=== PATIENT | female | born 1940 | race Caucasian/White ===

== ENCOUNTER 2017-01-17 20:45 | Inpatient (IN) | payer MEDICARE, BC ==
[~2017-01-17] VITALS: Ht 162.6 cm; Wt 55.3 kg
--- NOTE | ~2017-01-17 | ER ---
PATIENT'S NAME: CALEB RILEY [facility] AGE: 76 Y [address] ROOM: [place] [address] [place] [facility] [place]: 01/17/[place] ER/Outpatient Report DISCHARGE DATE: FAMILY PHYSICIAN: Joshua Brooks MD ATTENDING PHYSICIAN: Joshua Brooks Admission date and time documented in the medical record. I saw the patient at 2105 hours. CHIEF COMPLAINT: Choking, epigastric pain. HISTORY OF PRESENT ILLNESS: This patient is a 76-year-old female, who around 1930 hours developed a choking sensation and pain in her epigastric area, lower substernal area. She tried to drink some water, and it came right back up. She vomited about 3 to 4 times. Unable to keep anything down. She thought she may have had some type of obstruction of food bolus. She has not really ate anything except for some yogurt tonight, however. Brought to the emergency room for evaluation. She has been feeling a little bit better when she got here. She said that she vomited up a lot of phlegm with what she called "bubbly phlegm." No solid food particles were vomited up. She is a little bit short of breath because of the discomfort. She does have chronic diarrhea over the past year. No urinary symptomatology. No recent fever, chills, sweats, coughs, colds, or flus. No headache, eyes, ears, nose, throat, neck, or spine pain. No lightheadedness, dizziness, syncope, or near syncope. No fall or trauma. No joint or muscle swelling, redness, or pain. No skin eruptions or rash. The patient does have a history of Parkinson disease, but no other neuro changes. She has bipolar affective disorder. No psychosis. She does have hypothyroidism, no other endocrine problems. HOME MEDICATIONS: See attached medication list. ALLERGIES: NONE. SOCIAL HISTORY: Nonsmoker, nondrinker. SIGNIFICANT PAST MEDICAL HISTORY: Parkinson disease, dyslipidemia, hypothyroidism, hypertension, bipolar affective disorder, small bowel obstruction with mesenteric volvulus, urinary tract infection, irritable bowel syndrome, sepsis, uterine cancer, remote tobacco abuse. [facility] 76 Y [address] ROOM: [address] [address] [place] [facility] [place]: 01/17/2017 ER/Outpatient Report DISCHARGE DATE: FAMILY PHYSICIAN: Joshua Brooks MD ATTENDING PHYSICIAN: Joshua Broosk OPERATIONS: Hysterectomy, exploratory laparotomy with takedown of adhesions, appendectomy, cholecystectomy, central line placement. REVIEW OF SYSTEMS: All systems reviewed by me are negative with the exception of those discussed in the history of present illness. PHYSICAL EXAMINATION: VITAL SIGNS: Temperature 98.2 tympanic, pulse 80, respirations 18, blood pressure 116/80, O2 saturation on room air is 92%. HEAD: Normocephalic. No abrasion, contusion, laceration, swelling of the scalp or face. EYES: Extraocular muscles intact. PERRL. EARS: Clear TMs bilaterally. NOSE AND THROAT: Clear. Mucous membranes moist. NECK: No nuchal rigidity. No thyromegaly or cervical adenopathy. No tenderness. SPINE: Negative. LUNGS: Clear. Good air flow. No rales, rhonchi, or wheezes. HEART: Regular. Pulses are palpable. No chest wall or ribcage pain to palpation. ABDOMEN: Soft. Some mild tenderness in the epigastric region. No true guarding or rigidity. No rebound tenderness. Bowel tones present. No organomegaly or abnormal mass palpable. No CVA tenderness. EXTREMITIES: Intact. NEUROVASCULAR: Intact. SKIN: Clear. No skin eruptions or rash. LABORATORY DATA AND X-RAYS: CMS was normal except for an elevated glucose 111, elevated creatinine 1.2 high, normal BUN of 24, low GFR 44. Amylase was elevated at 121, lipase was elevated at 2204. CPK was 99, taozf-ga-fyly cardiac enzymes were normal. CRP was 0.6. White count 7400, 52 segs, 35 lymphs, 9 monos, 3 eos, 1 baso, hemoglobin is 12.5, hematocrit 38.8, platelet count is 283,000. Pro-time is 10.5 with an INR of 1.0. EKG showed left bundle-branch block. Three abdominal x-rays show no perforation, obstruction, or acute lung infiltrate. No evidence of a hiatal hernia on the plain film. We will review a plain film with the radiologist. EMERGENCY DEPARTMENT COURSE: I did start the patient on IV normal saline fluids. I did give her glucagon, and after the glucagon, she seemed to be markedly improved with a full feeling in her epigastric substernal area. She was able to take some fluids. PATIENT'S NAME: CALEB RILEY [facility] AGE: 76 Y [address] ROOM: [place] [address] [place] [facility] [place]: 01/17/2017 ER/Outpatient Report DISCHARGE DATE: FAMILY PHYSICIAN: Joshua Brooks MD ATTENDING PHYSICIAN: Joshua Brooks IMPRESSION: 1. Acute pancreatitis with elevation of lipase at 2204. No past history of pancreatitis. She is not an alcoholic. She has had her gallbladder out. She has had no recurrent common duct stones. Does have a history of dyslipidemia, so we will need to check her lipid panel and profile. 2. Hypertension. 3. Bipolar affective disorder. 4. Parkinson disease. 5. Dyslipidemia. 6. Past history of uterine cancer, status post hysterectomy. 7. Past history of small bowel obstruction with mesenteric volvulus with operative procedure and resection of bowel. 8. Remote tobacco abuse. 9. History of irritable bowel syndrome. 10. Past history of sepsis. PLAN: I did start the patient on IV normal saline fluids. I have not had to give her anything for pain as yet. Discussed the patient with Dr. Radha Horton. We will admit the patient to the hospital. The patient will need to have a CT scan of the abdomen and pelvis to evaluate her pancreas. Discussion ensued with the patient concerning my findings and recommendations, she understands. KEIKO JIMENEZ MD SDS/modl /[id number] d: 01/18/17 0305 t: 01/24/17 0613, OUTPATIENT REPORT
--- NOTE | ~2017-01-17 | DS ---
PATIENT'S NAME: CALEB RILEY [facility] AGE: 76 Y [address] ROOM: [address] [place] [address] LOCATION: [facility] [place] ADMIT DATE: 01/19/2017 Discharge Summary DISCHARGE DATE: 01/23/2017 FAMILY PHYSICIAN: Joshua Brooks MD ATTENDING PHYSICIAN: Joshua Brooks DISCHARGE DIAGNOSIS: Acute pancreatitis of uncertain etiology, improved. SECONDARY DIAGNOSES: 1. Esophagitis, found on esophagogastroduodenoscopy. 2. Prinzmetal's angina, stable. 3. Hypertension, stable. 4. Hyperlipidemia, stable. 5. Parkinson's disease, stable. 6. Bipolar affective disorder. 7. History of irritable bowel syndrome. FOLLOWUP: Follow up is Dr. Garica in 1 week. He will plan on setting up an outpatient endoscopic ultrasound and repeat EGD. She is to see Dr. Brooks in 2 weeks. DISCHARGE MEDICATIONS: Include: 1. Welchol 625 p.o. 3 times a day. 2. Align 4 mg daily. 3. Calcium carbonate 1200 mg daily. 4. FiberCon 625 mg 2 of them daily. 5. Vitamin D3 1000 units daily. 6. Klonopin 0.5 mg 1-1/2 tablets at h.s. 7. Lamictal 200 mg every night at bedtime. 8. Levothyroxine 100 mcg daily. 9. Quinapril 10 mg daily. 10. Imodium 2 mg 1 tab every other day and 1 tab with each loose stool. 11. Toprol-XL 50 mg 1-1/2 tabs daily. 12. Zyprexa 10 mg daily at bedtime and 2.5 mg also at bedtime. 13. Pravastatin 20 mg daily. 14. Sinemet 25/100 2 tabs p.o. t.i.d. 15. Bentyl 10 mg t.i.d. 16. Pantoprazole 40 mg b.i.d. #60 with one refill. HISTORY OF PRESENT ILLNESS: The patient was admitted on 01/17/2017 with complaints of acute onset of abdominal pain like something got stuck. She had eaten some yogurt. She states it did not seem to want to go up or down. She kept having mucus and kept spitting that out. She did have some emesis in the emergency room actually that was prior to arrival in the ER. They did give her some glucagon that seemed to help her symptoms. Her initial labs were all PATIENT'S NAME: CALEB RILEY [facility] AGE: 76 Y [address] ROOM: [address] [address] LOCATION: [facility] [place] ADMIT DATE: 01/19/2017 Discharge Summary DISCHARGE DATE: 01/23/2017 FAMILY PHYSICIAN: Joshua Brooks MD ATTENDING PHYSICIAN: Joshua Brooks normal other than elevated lipase. The patient did have a history of previous bowel obstructions. HOSPITAL COURSE: The patient was admitted to the hospital, made initially n.p.o., her meds were ordered, and she could just have sips of water with that. Her labs were followed throughout. Her enzyme test, pancreas, and lipase did improve significantly. Her gallbladder is surgically absent. We obtained a GI consultation. She was seen by GI and they ordered a clear liquid diet. An MRCP and EGD were then setup. She was started on pantoprazole afterwards. On the , she was doing markedly better, and we went ahead and got things ready for her to go home. We were initially planning on sending her home after lunch, she did have some problems with some choking type episode; so, we kept her until the following day. Everything was going well the rest of that day and the morning that we sent her home; so, we went ahead and dismissed her to home. We did have her hold her antidiarrheal medicines until she had a BM as she has not had a BM in the last few days. She had a swallowing study that was all okay. She will follow up with GI as mentioned above. MD EDGAR JOSEPH/abdi /[id number] d: 03/06/17 0104 t: 03/10/17 1519, DISCHARGE SUMMARY
--- NOTE | ~2017-01-17 | CON ---
PATIENT'S NAME: JEWELS RILEY [facility] AGE: 76 Y [address] ROOM: [address] [place], [place] [address] LOCATION: [facility] – [place] ADMIT DATE: 01/17/2017 Consultation DISCHARGE DATE: FAMILY PHYSICIAN: Joshua Brooks MD ATTENDING PHYSICIAN: Joshua Brooks REFERRING PHYSICIAN: MARIANNE FISHER MD REASON FOR CONSULT: Pancreatitis. HISTORY OF PRESENT ILLNESS: Jewels Riley is a very pleasant, 76-year-old female, who was admitted with history of substernal chest discomfort, inability to swallow, which she thought initially to be secondary to possible food impaction; however, further evaluation in the emergency room revealed elevated amylase and lipase values at 121 and lipase of 2204. Since after admission, she has been feeling better and both amylase and lipase values have decreased. Her CBC was normal with a hemoglobin of 12.5, hematocrit 38.8, and liver function tests were normal with total bilirubin of 0.3, alkaline phosphatase 72, ALT 10, AST 20. The patient is pain free at present and wonders what caused this attack. She has not had any previous episodes of pancreatitis; however, mainly complains of having chronic diarrhea of at least 1 year duration. She had apparently undergone colonoscopy recently at another clinic whereby a large polyp was found. She was referred to surgeon, who then referred her to [place] for removal of the polyp. Apparently, this was done by Dr. Hancock in [place]. I do not have the official report of her colonoscopy, and I do not know if colon biopsies were undertaken to rule out microscopic colitis. She states nothing was found and she has episodes of chronic constipation that she would not go for few days and then she will have loose bowels for few days. She also has component of incontinence. A CT scan of the abdomen was done here, which revealed mildly dilated intrahepatic and common bile duct without any intraductal filling defects and a surgically absent gallbladder. The pancreas was reported as normal. PAST MEDICAL HISTORY: 1. Hypothyroidism. 2. Hyperlipidemia. 3. "IBS.". 4. Parkinson's. 5. Bipolar disorder. 6. Carcinoma of the uterus. PAST SURGICAL HISTORY: Exploratory laparotomy with lysis of adhesions in October of 2015, remote cholecystectomy, hysterectomy, and appendectomy. PATIENT'S NAME: JEWELS RILEY [facility] AGE: 76 Y [address] ROOM: [facility] [place] [place], [place] [address] LOCATION: [facility] [place] [place] ADMIT DATE: 01/17/2017 Consultation DISCHARGE DATE: FAMILY PHYSICIAN: Joshua Brooks MD ATTENDING PHYSICIAN: Joshua Brooks MEDICATIONS: As reviewed in [facility] and nothing significant in relation to pancreatitis. She denies any ingestion of antibiotics prior to this episode. ALLERGIES: NONE KNOWN. SOCIAL HISTORY: Negative for alcohol abuse. There is a positive history of smoking remotely. REVIEW OF SYSTEMS: The 10-point review of systems otherwise negative. PHYSICAL EXAMINATION: GENERAL: An elderly pleasant female, in no distress. She is afebrile. VITAL SIGNS: Her vital signs as recorded are stable. HEENT: Nonicteric sclerae. Pupils round and reactive. NECK: Supple without palpable nodes. CHEST: Clear to auscultation. HEART: S1, S2 normal. ABDOMEN: Soft and nondistended. There is no palpable tenderness or masses. EXTREMITIES: No edema. NEUROLOGIC: Awake, alert, and appropriate, without any focal deficits. IMPRESSION: History and findings are suggestive of acute pancreatitis. Etiology unclear, still likely to be biliary etiology in view of intrahepatic ducts and the liver function tests can be normal in this state. Other considerations will include the possibility of underlying chronic pancreatitis in association with chronic diarrhea; however, the possibility of microscopic colitis needs to be considered. Less likely etiology secondary to hyperlipidemia is autoimmune pancreatitis. At this point, the patient is completely pain free. We will place her on clear liquids and obtain MRCP. If MRCP is negative, strong consideration should be given to performing endoscopic ultrasound to not only look at the bile ducts but also to look at the pancreas so as to rule out any underlying chronic pancreatitis. Further recommendations pending these studies. Thank you for this consult. PATIENT'S NAME: JEWELS RILEY [facility] AGE: 76 Y [address] ROOM: [address] [address] LOCATION: [facility] – [place] [place] ADMIT DATE: 01/17/2017 Consultation DISCHARGE DATE: FAMILY PHYSICIAN: Joshua Brooks MD ATTENDING PHYSICIAN: Joshua Brooks MD AM/antonil /[id number] d: 01/18/17 2258 t: 02/08/17 0735, CONSULTATION REPORT
--- NOTE | ~2017-01-17 | HP ---
PATIENT'S NAME: CALEB RILEY [facility] AGE: 76 Y [address] ROOM: [place] [address] [place] [facility] [place]: 01/17/2017 History & Physical DISCHARGE DATE: FAMILY PHYSICIAN: Joshua Brooks MD ATTENDING PHYSICIAN: Joshua Brooks DATE OF SERVICE: CHIEF COMPLAINT: Pancreatitis. HISTORY OF PRESENT ILLNESS: The patient is a 76-year-old female, who presented to the emergency room tonight after having an acute onset of bolus of yogurt, feeling like it got stuck in her abdomen. States that she had felt like it would go up or down. Had some mucus that she was spitting out, but did end up having some emesis prior to arrival here in the emergency room. They did give glucagon here, which did seem to help alleviate some of her symptoms as well. Initially, labs and exam all looked unremarkable, but then it was noted that her lipase was elevated. She has had 2 previous small bowel obstructions that resolved without surgery, her last one being in October of 2015. Denies any fever, chills, or any acute symptoms. States that she does have chronic diarrhea that she has had for over a year. PAST MEDICAL HISTORY: Significant for bipolar disorder, hypothyroidism, hyperlipidemia, Parkinson disease, IBS with diarrhea, history of uterine cancer, and small bowel obstruction in the summer of 2014 as well as October of 2015. PAST SURGICAL HISTORY: Includes, 1. Complete hysterectomy secondary to uterine cancer. 2. Cholecystectomy. REVIEW OF SYSTEMS: As per HPI. FAMILY HISTORY: Noncontributory. ALLERGIES: NONE. CURRENT MEDICATIONS: Include, PATIENT'S NAME: CALEB RILEY [facility] AGE: 76 Y [address] ROOM: [place] [address] [place] [facility] [place]: 01/17/2017 History & Physical DISCHARGE DATE: FAMILY PHYSICIAN: Joshua Brooks MD ATTENDING PHYSICIAN: Joshua Brooks 1. FiberCon 625 mg 2 tablets daily. 2. Loperamide 2 mg 1 tablet every other day. 3. Calcium 600 mg 2 tablets daily. 4. Vitamin D3 1000 units daily. 5. Levothyroxine 100 mcg daily. 6. Sinemet 25/100, 2 tablets t.i.d. 7. Welchol 625 mg 1 p.o. t.i.d. 8. Metoprolol XR 50 mg 1/2 tablet daily. 9. Pravastatin 20 mg daily. 10. Quinapril 10 mg daily. 11. Bentyl 10 mg t.i.d. 12. Align Probiotic 1 tablet daily. 13. Olanzapine 2.5 mg at bedtime as well as 10 mg at bedtime. 14. Lamotrigine 200 mg at bedtime. 15. Clonazepam 0.5 mg 3 tablets at bedtime. ALLERGIES: NO ALLERGIES. PHYSICAL EXAMINATION: VITAL SIGNS: Height 5 feet 4 inches, weight 55.1 kg. Blood pressure 116/80, pulse of 80, respirations 18, temperature 98.2, and O2 saturation 92%. GENERAL: This is an alert pleasant female, in no acute distress. HEENT: Mouth had moist mucous membranes. Eyes: Pupils were reactive. Conjunctivae were clear. Moist mucous membranes. NECK: Supple with no lymphadenopathy. HEART: Regular. LUNGS: Clear with no wheezes, crackles, or rhonchi heard. ABDOMEN: Positive bowel sounds. Soft. It was really not terribly tender on exam. No rebound, guarding, or peritoneal signs. : Exam was not done. EXTREMITIES: Showed no clubbing, cyanosis, or edema. LABORATORY DATA: CMS: Glucose of 111, creatinine of 1.2, GFR low at 44. Liver tests normal. Amylase 121, lipase 2204. CPK 99, rest of cardiac enzymes were negative. EKG showed a left bundle-branch block. I do not have another one for comparison at this time. INR 1.0. CBC: White count of 7400, hemoglobin 12.5. ASSESSMENT: Probable pancreatitis. PLAN: Currently, there is a long wait for CT scan secondary to trauma, so we will admit the patient. We will keep n.p.o. We will allow her to take her PATIENT'S NAME: CALEB RILEY [facility] AGE: 76 Y [address] ROOM: [place] [address] [place] [facility] [place]: 01/17/2017 History & Physical DISCHARGE DATE: FAMILY PHYSICIAN: Joshua Brooks MD ATTENDING PHYSICIAN: Joshua Brooks nighttime medications with sips of water. Discussed being n.p.o. after this. She is really not complaining of pain at this time, so we will not administer any pain medication currently. We will get CT scan abdomen pelvis as soon as available. We will recheck amylase and lipase levels in the morning. Dr. Brooks to take over care. MD ROSALINA FRANKS/abdi /[id number] D: [id number] T: [id number] HISTORY & PHYSICAL
[~2017-01-17 20:45] MED LIST changes: -ACCUPRIL10 MG PO; -ALIGN4 MG PO; -BENTYL10 MG PO; -CALCIUM CARBON600 MG PO; -CARAFATE1 GM PO; -FIBERCON625 MG PO; -IMODIUM2 MG PO; -NITROSTAT0.4 MG SL; -PANTOPRAZOLE SO40 MG PO; -VITAMIN D1000 UNIT PO; -ZYPREXA2.5 M1 PO
[2017-01-17 21:37] LABS: BASOPHIL # 0.1 K/uL (0.0-0.2); BASOPHIL % 0.8 %; EOSINOPHIL # 0.2 K/uL (0.0-0.5); EOSINOPHIL % 3.3 %; HEMATOCRIT 38.8 % (33.0-46.0); HEMOGLOBIN 12.5 g/dL (10.0-15.0); IMMATURE GRANULOCYTE % 0.3 %; LYMPHOCYTE # 2.6 K/uL (0.8-4.0); LYMPHOCYTE % 34.8 %; MCH 30.6 pg (27.0-34.0); MCHC 32.2 gm/dL (32.0-36.5); MCV 94.9 fl (83.0-98.0); MONOCYTE # 0.6 K/uL (0.0-1.0); MONOCYTE % 8.5 %; MPV 8.7 fl (9.4-12.4); NEUTROPHIL # (ANC) 3.9 K/uL (1.8-7.8); NEUTROPHIL % 52.3 %; NRBC % 0 /100WBC (0-0.00); PLATELET COUNT 283 K/uL (150-450); RBC 4.09 M/uL (3.50-5.50); RDW-CV 12.3 % (11.9-14.6); WBC 7.4 K/uL (4.0-11.0)
[2017-01-17 21:43] LABS: PROTIME 10.5 SECONDS (9.6-11.1)
[2017-01-17 21:53] LABS: ALBUMIN 3.4 gm/dL (3.5-5.0); ALK PHOS 72 IU/L (33-138); AST 20 IU/L (10-40); BLOOD UREA NITROGEN 24 mg/dL (6-24); CALCIUM 8.9 mg/dL (8.5-10.5); CHLORIDE 106 mMol/L (96-110); CO2 29 mMol/L (22-32); CPK 99 IU/L (21-215); CREATININE 1.2 mg/dL (0.5-1.1); ESTIMATED GFR (MDRD EQUATION) 44; SODIUM 141 mMol/L (135-145); TOTAL BILIRUBIN 0.3 mg/dL (0.0-1.5)
[2017-01-17 22:00] LABS: ALT < 10 IU/L (12-78)
[2017-01-17] MEDS ORDERED: FIBERCON625 MG PO (23:56)
[2017-01-17] MEDS ORDERED: IMODIUM2 MG PO (23:57)
[2017-01-17] MEDS ORDERED: CALCIUM CARBON600 MG PO (23:58)
[2017-01-17] MEDS ORDERED: VITAMIN D1000 UNIT PO (23:58)
[2017-01-18] MEDS ORDERED: ACCUPRIL10 MG PO (00:03)
[2017-01-18] MEDS ORDERED: BENTYL10 MG PO (00:04)
[2017-01-18] MEDS ORDERED: ALIGN4 MG PO (00:05)
[2017-01-18] MEDS ORDERED: ZYPREXA2.5 M1 PO (00:06)
[2017-01-18] MEDS ORDERED: IMODIUM2 MG PO (00:12)
[2017-01-18 05:46] LABS: ALBUMIN 3.3 gm/dL (3.5-5.0); ALK PHOS 63 IU/L (33-138); ANION GAP 11.8 (10.0-19.0); AST 18 IU/L (10-40); BLOOD UREA NITROGEN 19 mg/dL (6-24); CALCIUM 8.7 mg/dL (8.5-10.5); CHLORIDE 107 mMol/L (96-110); CO2 30 mMol/L (22-32); CREATININE 1.1 mg/dL (0.5-1.1); ESTIMATED GFR (MDRD EQUATION) 48; POTASSIUM 3.8 mMol/L (3.7-5.1); SODIUM 145 mMol/L (135-145); TOTAL PROTEIN 6.7 g/dL (6.0-8.4)
[2017-01-18 05:48] LABS: ALT < 10 IU/L (12-78); TOTAL BILIRUBIN 0.5 mg/dL (0.0-1.5)
[2017-01-19 05:50] LABS: BASOPHIL % 0.6 %; EOSINOPHIL # 0.2 K/uL (0.0-0.5); EOSINOPHIL % 3.2 %; HEMATOCRIT 42.2 % (33.0-46.0); HEMOGLOBIN 13.2 g/dL (10.0-15.0); IMMATURE GRANULOCYTE % 0.2 %; LYMPHOCYTE # 2.4 K/uL (0.8-4.0); LYMPHOCYTE % 36.1 %; MCH 30.3 pg (27.0-34.0); MCHC 31.3 gm/dL (32.0-36.5); MONOCYTE # 0.8 K/uL (0.0-1.0); MONOCYTE % 11.6 %; MPV 9.3 fl (9.4-12.4); NEUTROPHIL # (ANC) 3.2 K/uL (1.8-7.8); NEUTROPHIL % 48.3 %; NRBC % 0 /100WBC (0-0.00); PLATELET COUNT 268 K/uL (150-450); RBC 4.35 M/uL (3.50-5.50); RDW-CV 12.8 % (11.9-14.6); WBC 6.7 K/uL (4.0-11.0)
[2017-01-19 06:15] LABS: ALBUMIN 3.2 gm/dL (3.5-5.0); ALK PHOS 58 IU/L (33-138); ANION GAP 9.9 (10.0-19.0); AST 19 IU/L (10-40); BLOOD UREA NITROGEN 13 mg/dL (6-24); CALCIUM 8.8 mg/dL (8.5-10.5); CHLORIDE 108 mMol/L (96-110); CO2 30 mMol/L (22-32); CREATININE 1.1 mg/dL (0.5-1.1); ESTIMATED GFR (MDRD EQUATION) 48; POTASSIUM 3.9 mMol/L (3.7-5.1); SODIUM 144 mMol/L (135-145); TOTAL BILIRUBIN 0.5 mg/dL (0.0-1.5); TOTAL PROTEIN 6.5 g/dL (6.0-8.4)
[2017-01-19 06:16] LABS: ALT < 10 IU/L (12-78)
[2017-01-20 05:35] LABS: ANION GAP 11.7 (10.0-19.0); CALCIUM 8.4 mg/dL (8.5-10.5); POTASSIUM 3.7 mMol/L (3.7-5.1); TOTAL BILIRUBIN 0.5 mg/dL (0.0-1.5)
[2017-01-22] MEDS ORDERED: CARAFATE1 GM PO (10:10)
[2017-01-22] MEDS ORDERED: PANTOPRAZOLE SO40 MG PO (10:12)
[2017-02-01] MEDS ORDERED: NITROSTAT0.4 MG SL (11:19)
== END 2017-01-23 14:50 | disposition disaster alternative care site (69) | DRG 440 ==
LOC: GMED 20:45 → GMSU 23:17
PROVIDERS: Emergency Medicine; Obstetrics & Gynecology Obstetrics; ADMIT Family Medicine
PROC: 0DC38ZZ Extirpation of Matter from Lower Esophagus, Via Natural or Artificial Opening Endoscopic (ICD-10-PCS; principal; 2017-01-19)
DX: K85.90 Acute pancreatitis without necrosis or infection, unspecified (principal); G20 Parkinson's disease; C55 Malignant neoplasm of uterus, part unspecified; E03.9 Hypothyroidism, unspecified; E78.5 Hyperlipidemia, unspecified; F31.9 Bipolar disorder, unspecified; I10 Essential (primary) hypertension; K20.9 Esophagitis, unspecified; K52.9 Noninfective gastroenteritis and colitis, unspecified; R13.10 Dysphagia, unspecified; Z87.891 Personal history of nicotine dependence
CPT/HCPCS: C9113; G0378; J1610; J2001; J7030; J7060; Q9967

== ENCOUNTER → 2017-01-17 | Emergency (ER) | payer MEDICARE, BC ==
[~2017-01-17] MED LIST: ACCUPRIL10 M1 PO; ACCUPRIL10 MG PO; ALIGN4 MG PO; ASPIRIN EC81 MG PO; BENTYL10 MG PO; CALCIUM CARBON600 MG PO; CARAFATE1 GM PO; FIBERCON625 MG PO; FLORASTOR250 MG PO; IMODIUM2 MG PO; K-PHOS NEUTRAL)1 TAB PO; KEFLEX500 MG PO; KLONOPIN0.5 M1 PO; KLONOPIN0.5 MG PO; LAMICTAL200 MG PO; LOVENOX 4040 MG/0.4 SUB-Q; MYLANTA (MAG-AL30 ML PO; NITROSTAT0.4 MG SL; NORCO 5-325 MG1 TAB PO; PANTOPRAZOLE SO40 MG PO; PRAVACHOL20 MG PO; PROTONIX40 MG PO; SINEMET 25-1001 EACH PO; SYNTHROID100 MCG PO; TOPROL XL50 MG PO; TYLENOL325 MG PO; VITAMIN D1000 UNIT PO; WELCHOL 625MG625 MG PO; WELCHOL625 MG PO; ZYPREXA10 MG PO; ZYPREXA15 MG PO; ZYPREXA2.5 M1 PO; ZYPREXA2.5 MG PO
== END | disposition disaster alternative care site (69) ==
LOC: GAMB 20:21
DX: K22.2 Esophageal obstruction (principal); F41.9 Anxiety disorder, unspecified; R68.89 Other general symptoms and signs

== ENCOUNTER → 2017-02-02 | Day surgery (SDC) | payer MEDICARE, BC ==
[~2017-02-02] VITALS: Ht 162.6 cm; Wt 53.2 kg
[~2017-02-02] MED LIST changes: +ACCUPRIL10 MG PO; +ALIGN4 MG PO; +BENTYL10 MG PO; +CALCIUM CARBON600 MG PO; +CARAFATE1 GM PO; +FIBERCON625 MG PO; +IMODIUM2 MG PO; +NITROSTAT0.4 MG SL; +PANTOPRAZOLE SO40 MG PO; +VITAMIN D1000 UNIT PO; +ZYPREXA2.5 M1 PO
== END | disposition disaster alternative care site (69) ==
LOC: GPOC 02-01 15:00 → GEND 07:29 → GPOC 07:30
PROC: 0DBP8ZZ Excision of Rectum, Via Natural or Artificial Opening Endoscopic (ICD-10-PCS; principal; 2017-02-02)
PROC: 0DB68ZX Excision of Stomach, Via Natural or Artificial Opening Endoscopic, Diagnostic (ICD-10-PCS; 2017-02-02)
PROC: 0DB98ZX Excision of Duodenum, Via Natural or Artificial Opening Endoscopic, Diagnostic (ICD-10-PCS; 2017-02-02)
PROC: 0DB58ZX Excision of Esophagus, Via Natural or Artificial Opening Endoscopic, Diagnostic (ICD-10-PCS; 2017-02-02)
DX: D12.8 Benign neoplasm of rectum (principal); K62.89 Other specified diseases of anus and rectum; K22.8 Other specified diseases of esophagus; E03.9 Hypothyroidism, unspecified; E78.5 Hyperlipidemia, unspecified; K58.9 Irritable bowel syndrome, unspecified; F31.9 Bipolar disorder, unspecified; Z86.010 Personal history of colon polyps; Z87.891 Personal history of nicotine dependence; Z90.49 Acquired absence of other specified parts of digestive tract; Z85.42 Personal history of malignant neoplasm of other parts of uterus; Z90.710 Acquired absence of both cervix and uterus; Z98.890 Other specified postprocedural states
CPT/HCPCS: J7030